=== PATIENT | male | born 1945 | race Hispanic/Latino ===

== ENCOUNTER → 2018-12-22 | Outpatient (CLI) | payer MEDICARE | END | disposition home or self-care (01) | LOC: RAH 09:24 | PROVIDERS: ATTEND Internal Medicine Critical Care Medicine | DX: Z13.6 Encounter for screening for cardiovascular disorders (principal) | CPT/HCPCS: 76775 ==

== ENCOUNTER → 2023-11-15 | Outpatient (CLI) | payer OTHER | END | disposition home or self-care (01) | LOC: RAH 07:42 | PROVIDERS: ATTEND Internal Medicine Cardiovascular Disease | DX: Z13.6 Encounter for screening for cardiovascular disorders (principal) | CPT/HCPCS: 75571 ==

== ENCOUNTER → 2023-11-21 | Outpatient (CLI) | payer MEDICARE | END | disposition home or self-care (01) | LOC: SHCH 07:56 | PROVIDERS: ATTEND Internal Medicine Cardiovascular Disease | DX: Z01.810 Encounter for preprocedural cardiovascular examination (principal); I10 Essential (primary) hypertension | CPT/HCPCS: 93306 ==

== ENCOUNTER → 2023-12-20 | Outpatient (CLI) | payer MEDICARE ==
[2023-12-20] MEDS: REGADENOSON 0.4 MG/5 ML PF SYG IVP SCH (12:15)
== END | disposition home or self-care (01) ==
LOC: RAH 07:54
PROVIDERS: ATTEND Internal Medicine Cardiovascular Disease
DX: I25.10 Atherosclerotic heart disease of native coronary artery without angina pectoris (principal)
CPT/HCPCS: 78452; 96374; 93017; J2785; A9500 ×2

== ENCOUNTER 2024-01-14 07:23 | Day surgery (SDC) | payer MEDICARE ==
[2024-01-13 11:10] LABS: CREATININE 0.9 mg/dL (0.5-1.3); POTASSIUM 4.4 mmol/L (3.5-5.1)
[2024-01-13 11:16] LABS: BASOPHILS # (AUTO) 0.04 K/uL (0.00-0.20); BASOPHILS % (AUTO) 0.6 % (0.0-5.0); EOSINOPHILS # (AUTO) 0.14 K/uL (0.00-0.70); EOSINOPHILS % (AUTO) 2.1 % (0.0-8.0); IMMATURE GRANULOCYTE ABSOLUTE 0.01 K/uL (0-1); LYMPHOCYTES # (AUTO) 1.2 K/uL (1.0-4.8); LYMPHOCYTES % (AUTO) 17.9 % (21.0-51.0); MEAN CORPUSCULAR HEMOGLOBIN 30.5 pg (27.0-33.0); MEAN CORPUSCULAR HGB CONC 32.2 g/dL (32.0-36.0); MEAN CORPUSCULAR VOLUME 94.5 fL (79-99); MONOCYTES # (AUTO) 0.4 K/uL (0.1-1.0); MONOCYTES % (AUTO) 6.2 % (3.0-13.0); NEUTROPHILS # (AUTO) 4.8 K/uL (1.8-7.7); PLATELET COUNT (AUTO) 201 K/uL (130-400); RED BLOOD CELL COUNT(AUTO) 4.76 MIL/uL (4.50-6.20); RED CELL DISTRIBUTION WIDTH 12.9 % (11.0-15.5); WHITE BLOOD COUNT (AUTO) 6.6 K/uL (4.8-10.8)
[2024-01-13 11:22] LABS: INR 1.22 (0.85-1.15)
[2024-01-13 11:23] LABS: PARTIAL THROMBOPLASTIN TIME 24.5 SEC (26.3-35.5)
[2024-01-13 12:10] VITALS: BP 110/52; PULSE 66; RESP 18
[~2024-01-14] VITALS: Ht 172.7 cm; Wt 73.7 kg
[2024-01-14] VITALS (13 sets, daily range): BP systolic 107–127; BP diastolic 49–60; PULSE 67–82; RESP 15–23
[~2024-01-14 07:23] MED LIST: AEC81 PO; ATOR20TA65 PO; CHOL100046 PO; DONE10TA43 PO; EMPA1TAB34 PO; FINA5TAB41 PO; GLIP10TA9 PO; LISI10TA24 PO; MULT-1329 PO; VENL-191 PO
[2024-01-14] MEDS: ceFAZolin SODIUM 2 GM VIAL ONE (07:28)
[2024-01-14] MEDS ORDERED: LIDOCAINE PF 100MG/5ML (2%) SYRINGE 5ML ONE (08:35)
[2024-01-14] MEDS ORDERED: ROCURONIUM BROMIDE 10MG/1ML 5ML VL ONE (08:35)
[2024-01-14] MEDS ORDERED: PROPOFOL 10 MG/ML 20ML VIAL IV ONE (08:35)
[2024-01-14] MEDS ORDERED: FENTANYL CITRATE PF 50 MCG/1 ML 2ML VIAL ONE ×2 (08:35→10:38)
[2024-01-14] MEDS: 0.9%NACL 1000ML 1,000 ML IV ONE (08:37)
[2024-01-14] MEDS ORDERED: ROPivacaine 0.5% 5MG/ML 30ML ONE (09:40)
[2024-01-14] MEDS ORDERED: EPHEDRINE SULFATE 50 MG/ML AMPULE ONE (09:41)
[2024-01-14] MEDS ORDERED: PHENYLEPHRINE HCL 10 MG/ML 1ML VIAL IV ONE (09:48)
[2024-01-14] MEDS ORDERED: GLYCOPYRROLATE 0.2 MG/ML 5 ML VIAL ONE (10:26)
[2024-01-14] MEDS ORDERED: NEOSTIGMINE METHYLSULFATE 1MG/ML IV ONE (10:26)
[2024-01-14] MEDS ORDERED: TRAM50TA4 PO (10:29)
[2024-01-14] MEDS ORDERED: GABA-529 PO (10:29)
[2024-01-14] MEDS ORDERED: DOCU-116 PO (10:29)
[2024-01-14] MEDS ORDERED: METH-662 PO (10:29)
[2024-01-14] MEDS: acetaMINOPHEN 1,000 MG/100 ML VIAL IV ONE (11:23)
[2024-01-14] MEDS: KETOROLAC 15MG/ML VIAL (15MG/ML) ONE (11:24)
== END 2024-01-14 12:30 | disposition home or self-care (01) ==
LOC: DAH 07:23
PROVIDERS: ATTEND Surgery
DX: K40.90 Unilateral inguinal hernia, without obstruction or gangrene, not specified as recurrent (principal); I10 Essential (primary) hypertension; E78.5 Hyperlipidemia, unspecified; F41.9 Anxiety disorder, unspecified; E11.9 Type 2 diabetes mellitus without complications; M17.0 Bilateral primary osteoarthritis of knee; F03.90 Unspecified dementia, unspecified severity, without behavioral disturbance, psychotic disturbance, mood disturbance, and anxiety; Z79.899 Other long term (current) drug therapy; Z98.890 Other specified postprocedural states; Z79.82 Long term (current) use of aspirin; Z79.84 Long term (current) use of oral hypoglycemic drugs; Z79.01 Long term (current) use of anticoagulants
CPT/HCPCS: 80048; 85025; 85610; 85730; 86850; 86900; 86901; 36415; 49650; 64488; 82948 ×2; A6260; A4600; A4663; J7030 ×2; A4344; J3010 ×2; J3490 ×3; J2001; J2704; J2710; J2795; J1885; J2371; J0690; G0168; A4649 ×4; A4930; C1781; A4215; A4223; A4213; A4222; A4221